=== PATIENT | female | born 1985 | race Caucasian/White ===

== ENCOUNTER → 2019-10-05 | Outpatient (CLI) | payer MEDICAID | END | disposition home or self-care (01) | LOC: LABWHC1 11:50 | PROVIDERS: ATTEND Pediatrics Pediatric Infectious Diseases | DX: Z20.828 Contact with and (suspected) exposure to other viral communicable diseases (principal) | CPT/HCPCS: U0003; C9803 ==

== ENCOUNTER → 2020-09-09 | Outpatient (CLI) | payer MEDICAID ==
--- NOTE | 2020-09-10 14:20 | US ---
EXAMINATION TYPE: US transvaginal DATE OF EXAM: 09/09/2020 COMPARISON: NONE CLINICAL HISTORY: N93.8 DUB. IUD placement TECHNIQUE: . Transvaginal sonographic images of the pelvis were acquired. Date of LMP: 1 week ago EXAM MEASUREMENTS: Uterus: 8.2 x 4.2 x 4.2 cm Endometrial Stripe: 0.3 cm Right Ovary: 2.2 x 2.3 x 2.0 cm Left Ovary: 3.1 x 2.2 x 1.7 cm 1. Uterus: Anteverted wnl Nabothian cyst visualized 2. Endometrium: wnl IUD visualized in good position 3. Right Ovary: wnl 4. Left Ovary: wnl 5. Bilateral Adnexa: wnl 6. Posterior cul-de-sac: wnl IMPRESSION: 1. Normal pelvic ultrasound. IUD appears to be within the endometrial canal.
== END | disposition home or self-care (01) ==
LOC: RADUSWWP 15:22
PROVIDERS: ATTEND Obstetrics & Gynecology
DX: Z30.430 Encounter for insertion of intrauterine contraceptive device (principal); N88.8 Other specified noninflammatory disorders of cervix uteri
CPT/HCPCS: 76830

== ENCOUNTER 2022-07-02 14:59 | Inpatient (IN) | payer MEDICAID ==
[2022-07-02] MEDS ORDERED: SODIUM CHLORIDE 0.9% 1,000 ML IV STA (15:49)
--- NOTE | 2022-07-02 16:12 | ED ---
General Adult HPI - General Chief complaint: Neuro Symptoms/Deficit Stated complaint: TIA? Time Seen by Provider: 07/02/22 15:42 Source: patient, RN notes reviewed, old records reviewed Mode of arrival: ambulatory Limitations: no limitations - History of Present Illness Initial comments: 37-year-old female with chief complaint of vision changes and slurred speech. Symptoms began at approximately 12:30. They lasted approximately 90 minutes. She states they began with a blurry vision and the feeling that the patient was looking through a prism. She developed some slurred speech which was transient. She had some right facial numbness and numbness to the right upper extremity. Symptoms resolved prior to arrival. She does complain of a mild left-sided headache. - Related Data Home Medications Medication Instructions Recorded Confirmed Phentermine HCl 18.75 mg PO DAILY 07/02/22 07/02/22 Allergies Allergy/AdvReac Type Severity Reaction Status Date / Time sulfamethoxazole Allergy Rash/Hives Verified 07/02/22 17:52 [From Bactrim] trimethoprim [From Bactrim] Allergy Rash/Hives Verified 07/02/22 17:52 Review of Systems ROS Statement: Those systems with pertinent positive or pertinent negative responses have been documented in the HPI. ROS Other: All systems not noted in ROS Statement are negative. Past Medical History Past Medical History: No Reported History History of Any Multi-Drug Resistant Organisms: None Reported Past Surgical History: No Surgical Hx Reported Past Psychological History: No Psychological Hx Reported Smoking Status: Never smoker Past Alcohol Use History: None Reported Past Drug Use History: None Reported General Exam Limitations: no limitations General appearance: alert, in no apparent distress Head exam: Present: atraumatic, normocephalic Eye exam: Present: normal appearance, PERRL, EOMI Neck exam: Present: normal inspection. Absent: tenderness, meningismus Respiratory exam: Present: normal lung sounds bilaterally. Absent: respiratory distress, wheezes Cardiovascular Exam: Present: regular rate, normal rhythm GI/Abdominal exam: Present: soft. Absent: distended, tenderness Extremities exam: Present: normal inspection, normal capillary refill Neurological exam: Present: alert, oriented X3, CN II-XII intact, other (Normal strength throughout, 5 out of 5. Patient has no limb ataxia, normal finger to nose bilaterally, normal [id number] bilaterally) Psychiatric exam: Present: normal affect, normal mood Skin exam: Present: warm, dry, intact. Absent: cyanosis, diaphoretic Course Vital Signs 07/02/22 07/02/22 07/02/22 15:37 18:22 19:38 Temperature 98.2 F Pulse Rate 88 82 70 Respiratory 16 18 16 Rate Blood Pressure 142/73 124/88 116/75 O2 Sat by Pulse 100 98 99 Oximetry EKG Findings - EKG Comments: EKG Findings:: EKG: Sinus rhythm incomplete right bundle-branch block, rate of 90, IL interval 153, QRS duration 114, QTC 386, no ST segment elevation - EKG Results: EKG: interpreted by YAHIR Medical Decision Making - Medical Decision Making Was pt. sent in by a medical professional or institution (, PA, [facility], urgent care, hospital, or fci...) When possible be specific @ -No Did you speak to anyone other than the patient for history (EMS, parent, family, police, friend...)? What history was obtained from this source @ -No Did you review nursing and triage notes (agree or disagree)? Why? @ -I reviewed and agree with nursing and triage notes Were old charts reviewed (outside hosp., previous admission, EMS record, old EKG, old radiological studies, urgent care reports/EKG's, fci records)? Report findings @ -No old charts were reviewed Differential Diagnosis (chest pain, altered mental status, abdominal pain women, abdominal pain men, vaginal bleeding, weakness, fever, dyspnea, syncope, headache, dizziness, GI bleed, back pain, seizure, CVA, palpatations, mental health, musculoskeletal)? @ Differential CVA Ischemic stroke, hemorrhagic stroke, brain tumor, atypical migraine, Wernicke's encephalopathy, seizure, multiple sclerosis, meningitis, encephalitis, hypoglycemia, Guillain-Maguire, electrolytes disturbance, myasthenia gravis.... This is not meant to be an all-inclusive list EKG interpreted by me (3pts min.). @ -As above X-rays interpreted by me (1pt min.). @ Chest x-ray negative for acute cardiopulmonary disease CT interpreted by me (1pt min.). @ CT without contrast negative for hemorrhage or mass effect. U/S interpreted by me (1pt. min.). @ -None done What testing was considered but not performed or refused? (CT, X-rays, U/S, labs)? Why? @ -None What meds were considered but not given or refused? Why? @ -None Did you discuss the management of the patient with other professionals (professionals i.e. , PA, [facility], lab, RT, psych nurse, social work therapist, immigration lawyer, teacher, complaint investigations officer, showcase trimmer)? Give summary @ Case discussed with Dr. Cotton Was smoking cessation discussed for >3mins.? @ -No Was critical care preformed (if so, how long)? @ yes Were there social determinants of health that impacted care today? How? (Homelessness, low income, unemployed, alcoholism, drug addiction, transportation, low edu. Level, literacy, decrease access to med. care, half-way, rehab)? @ -No Was there de-escalation of care discussed even if they declined (Discuss DNR or withdrawal of care, Hospice)? DNR status @ -No What co-morbidities impacted this encounter? (DM, HTN, Smoking, COPD, CAD, Cancer, CVA, ARF, Chemo, Hep., AIDS, mental health diagnosis, sleep apnea, morbid obesity)? @ -None Was patient admitted / discharged? Hospital course, mention meds given and route, prescriptions, significant lab abnormalities, going to OR and other pertinent info. @ -[37-year-old female presented with vision changes, slurred speech and right- sided facial numbness and right arm numbness. Symptoms resolved prior to arrival. Patient received full ER stroke workup which was essentially unremarkable. There is a possibility that this was migraine-related although the patient only had a very slight headache. Given her age I will observe this patient overnight with MRI ordered and neurology consultation. Undiagnosed new problem with uncertain prognosis? @ -No Drug Therapy requiring intensive monitoring for toxicity (Heparin, Nitro, Insulin, Cardizem)? @ -No Were any procedures done? @ -No Diagnosis/symptom? @ TIA Acute, or Chronic, or Acute on Chronic? @ Acute Uncomplicated (without systemic symptoms) or Complicated (systemic symptoms)? @ Complicated Side effects of treatment? @ -No Exacerbation, Progression, or Severe Exacerbation? @ -No Poses a threat to life or bodily function? How? (Chest pain, [place], [place], pneumonia, PE, COPD, DKA, ARF, appy, cholecystitis, CVA, Diverticulitis, Homicidal, Suicidal, threat to staff... and all critical care pts) @ Yes, TIA, CVA - Lab Data Result diagrams: 07/02/22 16:02 07/02/22 16:02 Lab Results 07/02/22 07/02/22 07/02/22 Range/Units 16:02 16:02 16:02 WBC 8.9 (3.8-10.6) k/uL RBC 4.27 (3.80-5.40) m/uL Hgb 12.9 (11.4-16.0) gm/dL Hct 39.0 (34.0-46.0) % MCV 91.5 (80.0-100.0) fL MCH 30.2 (25.0-35.0) pg MCHC 33.0 (31.0-37.0) g/dL RDW 12.4 (11.5-15.5) % Plt Count 323 (150-450) k/uL MPV 7.8 Neutrophils % 70 % Lymphocytes % 24 % Monocytes % 4 % Eosinophils % 0 % Basophils % 0 % Neutrophils # 6.2 (1.3-7.7) k/uL Lymphocytes # 2.1 (1.0-4.8) k/uL Monocytes # 0.4 (0-1.0) k/uL Eosinophils # 0.0 (0-0.7) k/uL Basophils # 0.0 (0-0.2) k/uL PT 10.1 (9.0-12.0) sec INR 0.9 (<1.2) APTT 23.8 (22.0-30.0) sec Sodium (137-145) mmol/L Potassium (3.5-5.1) mmol/L Chloride (98-107) mmol/L Carbon Dioxide (22-30) mmol/L Anion Gap mmol/L BUN (7-17) mg/dL Creatinine (0.52-1.04) mg/dL Est GFR (CKD-EPI)AfAm (>60 ml/min/1.73 sqM) Est GFR (CKD-EPI)NonAf (>60 ml/min/1.73 sqM) Glucose (74-99) mg/dL Calcium (8.4-10.2) mg/dL Total Bilirubin (0.2-1.3) mg/dL AST (14-36) U/L ALT (4-34) U/L Alkaline Phosphatase (38-126) U/L Creatine Kinase (30-135) U/L Troponin I (0.000-0.034) ng/mL Total Protein (6.3-8.2) g/dL Albumin (3.5-5.0) g/dL Urine Color Yellow Urine Appearance Cloudy H (Clear) Urine pH 8.0 (5.0-8.0) Ur Specific Woodworth 1.013 (1.001-1.035) Urine Protein Negative (Negative) Urine Glucose (UA) Negative (Negative) Urine Ketones Negative (Negative) Urine Blood Negative (Negative) Urine Nitrite Negative (Negative) Urine Bilirubin Negative (Negative) Urine Urobilinogen <2.0 (<2.0) mg/dL Ur Leukocyte Esterase Trace H (Negative) Urine RBC 1 (0-5) /hpf Ur Squamous Epith Cells 12 H (0-4) /hpf Urine Bacteria Rare H (None) /hpf Urine Mucus Rare H (None) /hpf 07/02/22 07/02/22 Range/Units 16:02 16:02 WBC (3.8-10.6) k/uL RBC (3.80-5.40) m/uL Hgb (11.4-16.0) gm/dL Hct (34.0-46.0) % MCV (80.0-100.0) fL MCH (25.0-35.0) pg MCHC (31.0-37.0) g/dL RDW (11.5-15.5) % Plt Count (150-450) k/uL MPV Neutrophils % % Lymphocytes % % Monocytes % % Eosinophils % % Basophils % % Neutrophils # (1.3-7.7) k/uL Lymphocytes # (1.0-4.8) k/uL Monocytes # (0-1.0) k/uL Eosinophils # (0-0.7) k/uL Basophils # (0-0.2) k/uL PT (9.0-12.0) sec INR (<1.2) APTT (22.0-30.0) sec Sodium 140 (137-145) mmol/L Potassium 3.8 (3.5-5.1) mmol/L Chloride 100 (98-107) mmol/L Carbon Dioxide 29 (22-30) mmol/L Anion Gap 11 mmol/L BUN 10 (7-17) mg/dL Creatinine 0.56 (0.52-1.04) mg/dL Est GFR (CKD-EPI)AfAm >90 (>60 ml/min/1.73 sqM) Est GFR (CKD-EPI)NonAf >90 (>60 ml/min/1.73 sqM) Glucose 98 (74-99) mg/dL Calcium 9.5 (8.4-10.2) mg/dL Total Bilirubin 0.4 (0.2-1.3) mg/dL AST 24 (14-36) U/L ALT 20 (4-34) U/L Alkaline Phosphatase 62 (38-126) U/L Creatine Kinase 57 (30-135) U/L Troponin I <0.012 (0.000-0.034) ng/mL Total Protein 8.0 (6.3-8.2) g/dL Albumin 4.5 (3.5-5.0) g/dL Urine Color Urine Appearance (Clear) Urine pH (5.0-8.0) Ur Specific Woodworth (1.001-1.035) Urine Protein (Negative) Urine Glucose (UA) (Negative) Urine Ketones (Negative) Urine Blood (Negative) Urine Nitrite (Negative) Urine Bilirubin (Negative) Urine Urobilinogen (<2.0) mg/dL Ur Leukocyte Esterase (Negative) Urine RBC (0-5) /hpf Ur Squamous Epith Cells (0-4) /hpf Urine Bacteria (None) /hpf Urine Mucus (None) /hpf Critical Care Time Critical Care Time: Yes Total Critical Care Time: 35 Disposition Clinical Impression: Transient cerebral ischemia Disposition: ADMITTED IP TO THIS HOSP Condition: Stable Is patient prescribed a controlled substance at d/c from ED?: No Time of Disposition: 18:35
[2022-07-02 16:26] LABS: Basophils % (A) 0 %; Eosinophils % (A) 0 %; HGB 12.9 gm/dL (11.4-16.0); Lymphocytes # (A) 2.1 k/uL (1.0-4.8); Lymphocytes % (A) 24 %; MCH 30.2 pg (25.0-35.0); MCV 91.5 fL (80.0-100.0); Mean Platelet Volume 7.8; Monocytes # (A) 0.4 k/uL (0-1.0); Monocytes % (A) 4 %; Neutrophils # (A) 6.2 k/uL (1.3-7.7); Neutrophils % (A) 70 %; Platelet Count 323 k/uL (150-450); RBC 4.27 m/uL (3.80-5.40); RDW 12.4 % (11.5-15.5); WBC 8.9 k/uL (3.8-10.6)
[2022-07-02 16:36] LABS: Appearance,Urine Cloudy (Clear); Bacteria,Urine Rare /hpf; Bilirubin,Urine Negative (Negative); Blood,Urine Negative (Negative); Color,Urine Yellow; Glucose,Urine (UA) Negative (Negative); Ketones,Urine Negative (Negative); Leukocyte Esterase,Urine Trace (Negative); Mucus,Urine Rare /hpf; Nitrite,Urine Negative (Negative); Protein,Urine Negative (Negative); RBC,Urine 1 /hpf (0-5); Specific Gravity,Urine 1.013 (1.001-1.035); Squamous Epithelial Cell,Urine 12 /hpf (0-4); Urobilinogen,Urine <2.0 mg/dL (<2.0)
[2022-07-02 16:40] LABS: INR 0.9 (<1.2); Partial Thromboplastin Time 23.8 sec (22.0-30.0); Prothrombin Time 10.1 sec (9.0-12.0)
[2022-07-02 16:41] LABS: ALT 20 U/L (4-34); AST 24 U/L (14-36); African American GFR (CKD) >90 (>60 ml/min/1.73 sqM); Albumin 4.5 g/dL (3.5-5.0); Alkaline Phosphatase 62 U/L (38-126); Anion Gap 11 mmol/L; Blood Urea Nitrogen 10 mg/dL (7-17); Calcium 9.5 mg/dL (8.4-10.2); Carbon Dioxide 29 mmol/L (22-30); Chloride 100 mmol/L (98-107); Creatine Kinase 57 U/L (30-135); Glucose 98 mg/dL (74-99); Non-African American GFR(CKD) >90 (>60 ml/min/1.73 sqM); Potassium 3.8 mmol/L (3.5-5.1); Sodium 140 mmol/L (137-145); Total Bilirubin 0.4 mg/dL (0.2-1.3)
--- NOTE | 2022-07-02 16:49 | XR ---
EXAMINATION TYPE: XR chest 2V DATE OF EXAM: 07/02/2022 COMPARISON: None HISTORY: 37-year-old female confusion, altered mental status TECHNIQUE: PA and lateral views FINDINGS: The cardiomediastinal silhouette, aorta, and pulmonary vasculature are within normal limits. Lungs an d pleural spaces are clear. IMPRESSION: No acute cardiopulmonary process.
--- NOTE | 2022-07-02 17:16 | CT ---
EXAMINATION TYPE: CT brain wo con DATE OF EXAM: 07/02/2022 COMPARISON: None HISTORY: 37-year-old female neurologic deficit, acute, stroke suspected, vision changes and arm tingl ing. TECHNIQUE: Examination was done in axial plane without intravenous contrast. Coronal and sagittal r econstructions performed. CT DLP: 1863.3 combined mGycm Automated exposure control for dose reduction was used. FINDINGS: There is no evidence of acute intracranial hemorrhage, acute ischemic changes, mass, mass-effect, or extra-axial fluid collection. There is no effacement of cerebral sulci or basal subarachnoid cister ns. There is no hydrocephalus. There is no midline shift. Gonzalez-white matter distinction is preserv ed. Suspect prominent perivascular spaces bilateral basal ganglia. IMPRESSION: No acute intracranial abnormality seen.
--- NOTE | 2022-07-02 17:20 | CT ---
EXAMINATION TYPE: CT angio head neck DATE OF EXAM: 07/02/2022 COMPARISON: CT head same day HISTORY: 37 year old female vision changes and arm tingling TECHNIQUE: Contiguous axial scanning of the head and neck performed with IV Contrast, patient injecte d with 65 mL of Isovue 370. Coronal/sagittal reconstructions performed. 3-D reconstructions performe d on dedicated independent workstation. CT DLP: 1863.3 combined mGycm Automated exposure control for dose reduction was used. FINDINGS: Neck: Conventional branching anatomy. Codominant vertebral arteries which are patent throughout the course. Both common and internal carotid arteries are widely patent. There is moderate to marked hypertrophy of the bilateral palatine tonsils. Head: The vertebral and basilar arteries as well as the posterior circulation are patent. The bilateral internal carotid arteries are patent as is the remainder of the anterior circulation. Dural venous sinuses are patent. No aneurysmal changes seen. IMPRESSION: 1. NECK: WIDELY PATENT VERTEBRAL AND CAROTID ARTERIES OF THE NECK. INCIDENTAL MODERATE TO MARKED HYPE RTROPHY OF THE BILATERAL PALATINE TONSILS. 2. HEAD: NO LARGE VESSEL INTRACRANIAL ARTERIAL OCCLUSION, SIGNIFICANT STENOSIS, OR ANEURYSMAL CHANGE IS SEEN.
[2022-07-02] MEDS ORDERED: ASPIRIN 325 MG TAB PO STA (18:26)
[2022-07-02] MEDS: SODIUM CHLORIDE 0.9% 1,000 ML IV SCH (18:53)
[2022-07-03] MEDS: SODIUM CHLORIDE 0.9% 1,000 ML IV SCH ×2 (06:16→16:38)
[2022-07-03] MEDS ORDERED: ASPIRIN 325 MG TAB PO SCH (09:00)
[2022-07-03] MEDS ORDERED: PANTOPRAZOLE 40 MG/10 ML VIAL IVP SCH (10:30)
--- NOTE | 2022-07-03 14:23 | P.CNNES ---
History of Present Illness Consult date: 07/03/22 Requesting physician: Jem Casillas Reason for Consult: TIA History of Present Illness: This is a 37-year-old woman with history of migraine who presented emergency department because of visual disturbance, tingling of the right and, difficulty getting her words out. Patient is accompanied with her mother and her fianc. Patient stated that around 12:30 in the afternoon yesterday she felt she was having visual disturbance of both eyes left worse is in the right and she felt like the she's looking through the Jell[employer]O and it lasted for 20 minutes then she had some difficulty getting her words out which lasted a few minutes then had the right and the tingling which lasted also for 3 minutes then had some right jaw tingling also lasted for a few minutes then her symptoms resolved. She denies any headache associated with this prior or during or after. She denies any history of stroke or TIAs in the past. Denies any history of seizures. He denies losing consciousness the during these episodes. She states that she has a history of migraines as once a month and is the different than this presentation. She feels back to baseline. She presented to our facility also back to baseline. She does not take any antiplatelets at home. Denies any miscarriages. She has a history of tobacco use and that quit smoking about 3 years ago. Denies any illicit drug use or alcohol use. She states that she has episodes of visual disturbance that is intermittent and follows up with award clerk and was told the patient has a features tear and it's over both eyes that comes and goes lasting for minutes. Family history of young stroke. Some of the workup to this hospital visit consisted of: CBC with differential and chemistry panels within normal limits CT of the head is reported as no acute intracranial abnormality seen. Angiography of the head and neck is reported as widely patent vertebral and c ortical arteries of the neck. Incidental moderate to marked hypertrophy of bilateral palatine tonsils. No large vessel intracranial artery occlusion, significant stenosis or aneurysm changes seen. Upon presented to our facility patient symptoms has resolved. No IV TPA since his symptoms resolved. Per the ED they felt it was a possible due to migraine. Review of Systems Review of system: The 12 point system was reviewed and apparent positive and negative per HPI. Past Medical History Past Medical History: No Reported History History of Any Multi-Drug Resistant Organisms: None Reported Past Surgical History: No Surgical Hx Reported Past Anesthesia/Blood Transfusion Reactions: No Reported Reaction Past Psychological History: No Psychological Hx Reported Smoking Status: Never smoker Past Alcohol Use History: None Reported Past Drug Use History: None Reported Medications and Allergies Home Medications Medication Instructions Recorded Confirmed Type Phentermine HCl 18.75 mg PO DAILY 07/02/22 07/02/22 History Allergies Allergy/AdvReac Type Severity Reaction Status Date / Time sulfamethoxazole Allergy Rash/Hives Verified 07/02/22 17:52 [From Bactrim] trimethoprim [From Bactrim] Allergy Rash/Hives Verified 07/02/22 17:52 Physical Examination - Vital Signs Vital Signs: Vital Signs Temp Pulse Pulse Resp BP BP Pulse Ox 07/03/22 12:00 97.9 F 73 18 115/75 100 07/03/22 08:00 98 F 76 18 103/64 100 07/03/22 04:00 97.8 F 99 19 101/57 97 07/03/22 00:00 97.9 F 77 18 117/72 99 07/02/22 20:25 98.0 F 73 19 121/78 100 07/02/22 19:38 70 16 116/75 99 07/02/22 18:22 82 18 124/88 98 07/02/22 15:37 98.2 F 88 16 142/73 100 Intake and Output 07/02/22 07/03/22 07/03/22 22:59 06:59 14:59 Intake Total 560 Balance 560 Intake: Oral 560 Other: Voiding Method Toilet Toilet Toilet # Voids 2 3 # Bowel Movements 1 Weight 81.647 kg GENERAL: The patient is lying in bed and is not in acute distress. CHEST: The heart rate is regular rate rhythm. No murmurs to auscultation. LUNG: Clear to auscultation bilaterally no wheezing noted throughout. Not labored breathing. ABDOMEN/GI: Bowel sounds present in all 4 quadrants. No tenderness to palpation throughout. NEUROLOGICAL: Higher mental function: The patient is awake, alert, oriented to self, place and time. Patient is following commands. No aphasia and no neglect. Cranial nerves: The pupils are round, equal and reactive to light and accommodation. Visual schrader are full to confrontation throughout. Extraocular movement is intact no nystagmus is noted. Facial sensation is normal to touch throughout. The facial strength is normal throughout. Hearing is normal bilaterally to hand rub. Tongue is midline and moved [id number] without any difficulty. No dysarthria is noted. Shoulder shrug is normal bilaterally. Motor: The strength is 5 over 5 throughout. Normal tone and bulk. Cerebellum: Normal finger to nose bilaterally. Sensation: Sensation is normal to touch throughout. Reflexes (right/left): 2+ throughout. Plantars are downgoing bilaterally. Results - Laboratory Findings CBC and BMP: 07/02/22 16:02 07/02/22 16:02 Abnormal Lab Findings: Abnormal Labs 07/02/22 16:02 Urine Appearance Cloudy H Ur Leukocyte Esterase Trace H Ur Squamous Epith Cells 12 H Urine Bacteria Rare H Urine Mucus Rare H Assessment and Plan Assessment: Transient episode of visual disturbance of both eyes then had the tingling of the right hand, right cheek, difficulty getting her words out (expressive aphasia): Unknown exact etiology. Possibly TIA. Cannot exclude atypical migraine vs focal seizure. Repeated visual disturbance and was told vitreous tear: Rule out ocular migraine History of migraine Ex-tobacco use (last used 3 years ago) Plan: MRI the brain is ordered and is pending Patient started on aspirin 25 mg daily by the ED and I change it to 81 mg daily. I also started the patient on Plavix 75 mg daily. Patient to be on dual antiplatelets for 21 days then after 21 days stop Plavix but continue aspirin indefinitely. Start the patient on Lipitor 10 mg daily at bedtime for secondary stroke prophylaxis I ordered a routine EEG because the patient's having multiple visual disturbance in the past and rule out underlying seizure. 2D echo and lipid panel were ordered and is pending Continue her checks Regarding monitoring PT OT and VIDEO MANAGER are consulted Recommend the patient to be on medications for prophylaxis of migraines that she stated that they'll she'll address this as an outpatient. She does not call wh at medication she tried in the past that she could not tolerate. I notified her about Topamax and she thinks she tried it and could not tolerate in the past but does not remember. We'll defer the rest of the medical management to primary team For DVT prophylaxis I start the patient on subcu heparin 5000 units every hours Upon discharge recommend the patient follow-up with a neurologist as outpatient within 1-2 weeks. Patient stated that that she cannot obtain MRI of the brain done today then w caro'll like to get it done as an outpatient. I notified her that I highly recommend that she gets as an inpatient but since the patient's symptoms has improved and she is back to baseline it is okay from a neurology perspective to obtain as an outpatient as soon as possible. The plan was discussed with the patient and her mother is at bedside as well as the patient's nurse. Thank you for the consultation. Chepe Hair M.D. Time with Patient: Greater than 30
[2022-07-03] MEDS ORDERED: HEPARIN SODIUM,PORCINE/PF 5,000 UNIT/0.5 ML SYRINGE SQ SCH (16:00)
[2022-07-03 16:19] VITALS: BP 104/66; PULSE 76; RESP 16; TEMP 98.4
--- NOTE | 2022-07-03 16:57 | P.HPIM ---
History of Present Illness H&P Date: 07/03/22 This is a pleasant 37-year-old female with past medical history significant for migraines, vitreous tear -follows with anesthesia attending,obesity, prior nicotine dependence, quit 3 years ago, presented to the ER with complaints of blurred vision, difficulty focusing, numbness of right hand , right arm with radiation to right jaw, difficulty getting her words out. Reports yesterday around 12:30, she was driving to go shopping when symptoms began. While driving her vision worsened, resembled looking through clear jello, worse on the left side, lasting approximately 10 minutes. Proceeded into the store reporting difficulty focusing on anyone/anything in the store. Reports she was able to see but with blurred vision. This incident occurred during her fasting time ( 10p-2p), though she does drink water and coffee during this time ( has been fasting x 4 mths). Glucose on admission 98. Upon driving back home, felt distressed, called her fianc, had trouble expressing her thoughts-difficulty finding words," words were inaccurate", speech was not slurred, followed by right hand numbness that traveled up the right arm and further radiated to right jaw lasting for a few minutes and subsided. Denies headache, denies diaphoresis. Denies chest pain, palpitations or shortness of breath. Denies syncope or near- syncope. Denies seizure activity. Reports migraines once a month but with a different presentation, unlike this. Prior to the event on Saturday night reports upset stomach, cramping, mild nausea without emesis or diarrhea, otherwise no prior recent illness. .Hematology, coagulation and chemistry panels unremarkable. UA reported trace leukocytes, rare bacteria, negative nitrates. Vital signs stable. EKG reported sinus rhythm with sinus arrhythmia, incomplete right bundle branch block. Chest x-ray reported no acute cardiopulmonary process. Brain CT reported no acute intracranial abnormality seen. CTA of head and neck reported widely patent vertebral and carotid arteries of the neck. Incidental moderate to marked hypertrophy of bilateral palatine tonsils. No larg e vessel intracranial artery occlusion, significant stenosis or aneurysm changes seen.On admission, symptoms had resolved and patient didnot receive IV TPA. Currently asymptomatic with the exception of her right hand feels swollen to her. Review of Systems ROS Statement: Those systems with pertinent positive or pertinent negative responses have been documented in the HPI. ROS Other: All systems not noted in ROS Statement are negative. Past Medical History Past Medical History: No Reported History History of Any Multi-Drug Resistant Organisms: None Reported Past Surgical History: No Surgical Hx Reported Past Anesthesia/Blood Transfusion Reactions: No Reported Reaction Past Psychological History: No Psychological Hx Reported Smoking Status: Never smoker Past Alcohol Use History: None Reported Past Drug Use History: None Reported Medications and Allergies Home Medications Medication Instructions Recorded Confirmed Type Phentermine HCl 18.75 mg PO DAILY 07/02/22 07/02/22 History Allergies Allergy/AdvReac Type Severity Reaction Status Date / Time sulfamethoxazole Allergy Rash/Hives Verified 07/02/22 17:52 [From Bactrim] trimethoprim [From Bactrim] Allergy Rash/Hives Verified 07/02/22 17:52 Physical Exam Vitals: Vital Signs Temp Pulse Pulse Resp BP BP Pulse Ox 07/03/22 08:00 98 F 76 18 103/64 100 07/03/22 04:00 97.8 F 99 19 101/57 97 07/03/22 00:00 97.9 F 77 18 117/72 99 07/02/22 20:25 98.0 F 73 19 121/78 100 07/02/22 19:38 70 16 116/75 99 07/02/22 18:22 82 18 124/88 98 07/02/22 15:37 98.2 F 88 16 142/73 100 Intake and Output 07/02/22 07/03/22 07/03/22 22:59 06:59 14:59 Other: Voiding Method Toilet Toilet # Voids 2 Weight 81.647 kg PHYSICAL EXAM: VITAL SIGNS: [As above] GENERAL: Sitting up in bed, no acute distress, fluent and appropriate speech. HEENT: Normocephalic, atraumatic Conjunctivae normal. eyes normal. MMM. NECK: Supple, No JVD. No thyroid enlargement. No LNs CARDIOVASCULAR: S1, S2 regular.No murmur RESPIRATION: Unlabored, bilateral air entry,Breath sounds clear. No rhonchi or crackles. ABDOMEN: Soft, nondistended, nontender . No guarding. no masses palpable. No ascites, No hepatosplenomegaly.Bowel sounds heard. LEGS: No edema. no swelling, no calf tenderness, positive DP pulses. PSYCHIATRY: Alert and oriented X3, mood and affect normal. NERVOUS SYSTEM: Cranial N 2-12 grossly normal. Moves all 4 limbs. No focal deficits. Strength and sensation grossly intact.. Skin: Warm and dry, no rash. Results CBC & Chem 7: 07/02/22 16:02 07/02/22 16:02 Labs: Abnormal Lab Results - Last 24 Hours (Table) 07/02/22 Range/Units 16:02 Urine Appearance Cloudy H (Clear) Ur Leukocyte Esterase Trace H (Negative) Ur Squamous Epith Cells 12 H (0-4) /hpf Urine Bacteria Rare H (None) /hpf Urine Mucus Rare H (None) /hpf Thrombosis Risk Factor Assmnt - Choose All That Apply Any of the Below Risk Factors Present?: No Assessment and Plan Assessment: Possible acute TIA or atypical migraine-ocular, possible seizure, in a patient with transient expressive aphasia, visual disturbance and numbness and tingling of right upper extremity into her right jaw. Reports history of Vitreous tear, follows with anesthesia attending History of monthly migraines Prior nicotine dependence, quit 3 years ago Obesity, BMI 30.9 Plan: Continue on current medication regime ,monitoring and symptomatic treatment. Echo/lipid panel pending. MRI ordered. PPI ordered for GI prophylaxis. Neurology consult in place, recommendations pending. The impression and plan of care has been dictated as directed. : I performed a history and examination of this patient, discussed the same with the dictator. I agree with the dictator's note ,documented as a scribe. Any additional findings or plans will be noted.
[2022-07-03 17:13] LABS: Chol/HDL Ratio 2.81 Ratio
[2022-07-03] MEDS ORDERED: ATORVASTATIN 10 MG TAB PO SCH (21:00)
--- NOTE | 2022-07-03 21:50 | EEG ---
ELECTROENCEPHALOGRAM REPORT CLINICAL HISTORY: This is a 37-year-old woman with repeated visual disturbance. The video EEG is obtained to evaluate for seizure and epileptiform activity. RELEVANT MEDICATION: The patient is not on any antiepileptic drugs. EEG TYPE: A routine 21-channel EEG is performed with video using the 10/20 electrode placement system. DESCRIPTION: Wakefulness is only obtained. During awake state, the posterior-dominant rhythm consists of [id number] voltage of 10-11 hertz activity that is well modulated and well sustained. There is no physiological stage 2 sleep architecture. There is no focal slowing. Interictal and ictal is none. ACTIVATION PROCEDURE: Photic stimulation did evoke a posterior driving response at low flash frequency. No abnormality is noted during the photic stimulation. Hyperventilation is not performed. CLINICAL INTERPRETATION: This is a normal routine EEG. There is no focal slowing, epileptiform discharge or seizure on the EEG. A normal routine EEG does not rule out underlying epilepsy. If, there continues to be a concern for seizures, then recommend sleep- deprived EEG or long-term EEG. Clinical correlation is recommended. CHANTEL / EMIL: [id number] / ALIS
[2022-07-04] MEDS ORDERED: CLOPIDOGREL 75 MG TAB PO SCH (09:00)
[2022-07-04] MEDS ORDERED: ASPIRIN 81 MG PO SCH (09:00)
--- NOTE | 2022-07-05 13:13 | CDI ---
Documentation Clarification Form Date: 07/05/2022 12:56:53 PM From: Saray Lyn Admit Date: 07/02/2022 6:31:00 PM Patient Name: Claudia Suarez Visit Number: [id number] Discharge Date: 07/03/2022 6:13:00 PM ATTENTION: The Clinical Documentation Specialists (CDI) and [facility] Coding Staff appreciate your assistance in clarifying documentation. Please respond to the clarification below the line at the bottom and electronically sign. The CDI & [facility] Coding staff will review the response and follow-up if needed. Please note: Queries are made part of the Legal Health Record. If you have any questions, please contact the author of this message via ITS. Dr. Chepe Hair The patients principal diagnosis the diagnosis that was chiefly responsible for the admission - has not been clearly identified and clarification is requested. The patient presented with the following- blurred vision, difficulty focusing, numbness of the right hand and right arm with radiation to the jaw, and difficulty getting her words out. History/Risk factors: patient has a history significant for migraines, vitreous tear- following with ophthalmology, obesity, and hx of nicotine dependence Clinical Indicators: patient was diagnosed with possible acute TIA, possible atypical migraine-ocular, and possible focal seizure in a patient with transient expressive aphasia, visual disturbance, numbness and tingling of the right upper extremity into her jaw. History of monthly migraines, and vitreous tear. Radiology findings: chest- no acute process, brain- no acute abnormalities, angiography CT- incidental moderate to marked hypertrophy of the bilateral palatine tonsils. EEG: Normal routine EEG. No focal slowing, epileptiform discharge or seizure on the EEG. Vital Signs: T: 98.2, P: 88, RR: 16, BP: 142/73, O2 100% room air Treatment: started on ASA 25mg in the ED, changed to 81mg daily, started on Plavix 75 mg daily- stay on dual antiplatets for 21 days, then stop Plavix and continue ASA indefinitely. Started on Lipitor 10mg Consults: neuro- patient left AMA In your professional opinion, can you please clarify which diagnosis, after study, was the reason chiefly responsible for the admission? [ ] TIA [ ] Atypical migraine [ ] Focal seizure [ ] Other, please specify [ ] Unable to determine UNABLE TO DETERMINE MTDD
--- NOTE | 2022-07-06 12:11 | CA ---
Transthoracic Echo Report Name: Claudia Suarez Age: 37 Gender: F : 1985 Exam Date: 07/03/2022 09:14 Exam Location: [place] Echo Ht (in): 64 Wt (lb): 180 Ordering Physician: Jem Casillas MD Attending/Referring Phys: [id number], Vinny Books Binder Hernan Hawthorne RDCS Procedure CPT: Indications: Thrombus Cardiac Hx: Technical Quality: Fair Contrast 1: Total Dose (mL): Contrast 2: Total Dose (mL): MEASUREMENTS (Male / Female) Normal Values 2D ECHO LV Diastolic Diameter PLAX 4.1 cm 4.2 - 5.9 / 3.9 - 5.3 cm LV Systolic Diameter PLAX 2.9 cm LV Fractional Shortening PLAX 29.3 % IVS Diastolic Thickness 0.8 cm 0.6 - 1.0 / 0.6 - 0.9 cm IVS Systolic Thickness 1.4 cm LVPW Diastolic Thickness 1.1 cm 0.6 - 1.0 / 0.6 - 0.9 cm LVPW Systolic Thickness 1.2 cm LV Relative Wall Thickness 0.4 RV Internal Dim ED PLAX 2.8 cm LVOT Diameter 1.8 cm Aortic Root Diameter 2.2 cm LA Systolic Diameter LX 3.2 cm 3.0 - 4.0 / 2.7 - 3.8 cm LA Ao Ratio 1.5 LV Diastolic Volume MOD BP 84.3 cm??? 67 - 155 / 56 - 104 cm??? LV Systolic Volume MOD BP 29.7 cm??? 22 - 58 / 19 - 49 cm??? LV Ejection Fraction MOD BP 64.8 % >= 55 % LV Stroke Volume MOD BP 54.6 cm??? LV Diastolic Volume MOD 4C 74.4 cm??? LV Systolic Volume MOD 4C 24.3 cm??? LV Ejection Fraction MOD 4C 67.3 % LV Stroke Volume MOD 4C 50.0 cm??? LV Diastolic Length 4C 9.2 cm LV Systolic Length 4C 7.3 cm LV Diastolic Volume MOD 2C 94.4 cm??? LV Systolic Volume MOD 2C 35.5 cm??? LV Ejection Fraction MOD 2C 62.5 % LV Stroke Volume MOD 2C 59.0 cm??? LV Diastolic Length 2C 9.1 cm LV Systolic Length 2C 7.1 cm M-MODE Aortic Root Diameter MM 2.4 cm LA Systolic Diameter MM 3.3 cm LA Ao Ratio MM 1.4 MV E Point Septal Separation 1.2 cm AV Cusp Separation MM 1.6 cm DOPPLER AV Peak Velocity 151.1 cm/s AV Peak Gradient 9.1 mmHg LVOT Peak Velocity 131.9 cm/s LVOT Peak Gradient 7.0 mmHg AV Area Cont Eq pk 2.3 cm??? MV Deceleration Glenn 576.2 cm/s??? MR Peak Velocity 131.0 cm/s MR Peak Gradient 6.9 mmHg Mitral E Point Velocity 99.7 cm/s Mitral A Point Velocity 57.3 cm/s Mitral E to A Ratio 1.7 MV Deceleration Time 173.0 ms MV E' Velocity 14.9 cm/s Mitral E to MV E' Ratio 6.7 TR Peak Velocity 206.0 cm/s TR Peak Gradient 17.0 mmHg Right Ventricular Systolic Press 27.0 mmHg PV Peak Velocity 81.8 cm/s PV Peak Gradient 2.7 mmHg FINDINGS Left Ventricle Left ventricular ejection fraction is estimated at 55-60 %. Normal Left ventricular size, wall thickness, systolic function with no obvious regional wall motion abnormalities. Normal Left ventricular diastolic filling pattern. Right Ventricle Normal right ventricular size and function. Right Atrium Normal right atrial size. Left Atrium Normal left atrial size. Mitral Valve Structurally normal mitral valve. No mitral stenosis. Trace to mild mitral regurgitation. Aortic Valve Trileaflet aortic valve. No aortic stenosis. No aortic regurgitation. Tricuspid Valve Mild tricuspid regurgitation. Pulmonic Valve Structurally normal pulmonic valve. Pericardium Normal pericardium. No pericardial effusion. Aorta Normal size aortic root and proximal ascending aorta. CONCLUSIONS Left ventricular ejection fraction 55-60% Normal left ventricular wall thickness Trace mitral regurgitation Mild tricuspid regurgitation No pericardial effusion RVSP 27 Previewed by: Dr. Geoffrey Myers DO (Electronically Signed) Final Date: 06 Jul 2022 12:10
--- NOTE | 2022-07-11 14:49 | CDI ---
Documentation Clarification Form Date: 07/11/2022 2:37:26 PM From: Saray Lyn Admit Date: 07/02/2022 6:31:00 PM Patient Name: Claudia Suarez Visit Number: [id number] Discharge Date: 07/03/2022 6:13:00 PM ATTENTION: The Clinical Documentation Specialists (CDI) and [facility] Coding Staff appreciate your assistance in clarifying documentation. Please respond to the clarification below the line at the bottom and electronically sign. The CDI & [facility] Coding staff will review the response and follow-up if needed. Please note: Queries are made part of the Legal Health Record. If you have any questions, please contact the author of this message via ITS. Dr. Jose Cotton The patients principal diagnosis the diagnosis that was chiefly responsible for the admission - has not been clearly identified and clarification is requested. The patient presented with the following blurred vision, difficulty focusing, numbness of the right hand and right arm with radiation to the jaw, and difficulty getting her words out. History/Risk factors: patient has a history significant for migraines, vitreous tear- following with ophthalmology, obesity, and hx of nicotine dependence. Clinical Indicators: patient was diagnosed with possible acute TIA, possible atypical migraine-ocular, and possible focal seizure in a patient with transient expressive aphasia, visual disturbance, numbness and tingling of the right upper extremity in to her jaw. History of monthly migraines, and vitreous tear. Radiology findings: chest- no acute process, brain- no acute abnormalities, angiography CT- incidental moderate to marked hypertrophy of the bilateral palatine tonsils. EEG: normal routine EEG, no focal slowing, epileptiform discharge or seizure of the EEG. Vital Signs: T: 98.2, P: 88, RR: 16, BP: 142/73, O2 100% on room air Treatment: started on ASA 25mg in the ED, changed to 81mg daily, started on Plavix 75mg daily- stay on dual antiplatelet for 21 days, then stop Plavix and continue ASA indefinitely. Started on Lipitor 10mg Consults: neuro patient left AMA In your professional opinion, can you please clarify which diagnosis, after study, was the reason chiefly responsible for the admission? [ ] TIA [ X] Atypical Migraine [ ] Focal Seizure [ ] Other, please specify [ ] Unable to determine MTDD
== END 2022-07-03 18:13 | disposition left against medical advice (07) | DRG 103 ==
LOC: EC 14:59 → 3SCARD 18:31
PROVIDERS: ADMIT Family Medicine; ATTEND Family Medicine
DX: G43.809 Other migraine, not intractable, without status migrainosus (principal); G45.9 Transient cerebral ischemic attack, unspecified; R47.01 Aphasia; G40.109 Localization-related (focal) (partial) symptomatic epilepsy and epileptic syndromes with simple partial seizures, not intractable, without status epilepticus; E66.9 Obesity, unspecified; H43.89 Other disorders of vitreous body; H53.8 Other visual disturbances; G83.21 Monoplegia of upper limb affecting right dominant side; R29.810 Facial weakness; J35.1 Hypertrophy of tonsils; I45.10 Unspecified right bundle-branch block; Z68.30 Body mass index [BMI] 30.0-30.9, adult; Z87.891 Personal history of nicotine dependence; Z79.899 Other long term (current) drug therapy; Z88.2 Allergy status to sulfonamides
CPT/HCPCS: 36415; 70450; 70496; 70498; 71046; 80053; 80061; 81001; 82550; 84484; 85025; 85610; 85730; 93005; 93306; 95816; 96360; 96361; 99291

== ENCOUNTER → 2022-07-18 | Outpatient (CLI) | payer MEDICAID ==
--- NOTE | 2022-07-18 08:11 | MR ---
EXAMINATION TYPE: MR brain wo con DATE OF EXAM: 07/18/2022 COMPARISON: CT brain July 02, 2022 HISTORY: Slurred speech, rt side facial/arm numbness resolved, MS, TIA displaced trimalleolar fractu re. TECHNIQUE: Multiplanar, multisequence imaging of the brain and brainstem is performed without IV cont rast. FINDINGS: Diffusion weighted images demonstrate no evidence of a recent infarct or other diffusion abnormality. The ventricular system and cisternal spaces are normal in size and appearance. The brain volume is a ge appropriate. There is 6 mm T2 hyperintense focus adjacent to left frontal horn axial image 19. Add itional few punctate T2 hyperintense foci are seen. No suspicious intraparenchymal blood product on t he T2 star weighted images to suggest JAIMIE. Midline structures demonstrate normal morphology. The craniocervical junction appears within normal limits. Normal vascular flow voids are present. The visualized sinuses are clear and the globes are i ntact. IMPRESSION: Minimal nonspecific white matter change otherwise unremarkable study
== END | disposition home or self-care (01) ==
LOC: RADMRIMAIN 05:57
PROVIDERS: ATTEND Family Medicine
DX: G35 Multiple sclerosis (principal); R90.82 White matter disease, unspecified; Z86.73 Personal history of transient ischemic attack (TIA), and cerebral infarction without residual deficits
CPT/HCPCS: 70551